=== PATIENT | male | born 1990 | race Hispanic/Latino ===

== ENCOUNTER 2022-01-19 03:08 | Inpatient (IN) | payer OTHER ==
[2022-01-19] VITALS (21 sets, daily range): BP systolic 111–156; BP diastolic 48–93
[~2022-01-19] VITALS: Ht 175.3 cm; Wt 117.3 kg
[2022-01-19 03:48] LABS: BASOPHILS % (AUTO) 0.2 % (0.0-5.0); EOSINOPHILS % (AUTO) 0.1 % (0.0-8.0); HEMATOCRIT 44.6 % (42-54); MEAN CORPUSCULAR HEMOGLOBIN 30.9 pg (27.0-33.0); MEAN CORPUSCULAR HGB CONC 35.9 g/dL (32.0-36.0); MEAN CORPUSCULAR VOLUME 86.1 fL (79-99); MONOCYTES % (AUTO) 5.3 % (3.0-13.0); NEUTROPHILS % (AUTO) 83.9 % (40.0-77.0); PLATELET COUNT (AUTO) 125 K/uL (130-400); RED BLOOD CELL COUNT(AUTO) 5.18 MIL/uL (4.50-6.20); RED CELL DISTRIBUTION WIDTH 12.4 % (11.0-15.5); WHITE BLOOD COUNT (AUTO) 8.8 K/uL (4.8-10.8)
[2022-01-19 03:51] LABS: APPEARANCE,URINE CLEAR (CLEAR); BILIRUBIN,URINE MODERATE (NEGATIVE); COLOR,URINE ORANGE (YELLOW); GLUCOSE, URINE (UA) 100 mg/dL (NEGATIVE); KETONES,URINE 15 mg/dL (NEGATIVE); LEUKOCYTE ESTERASE ,URINE NEGATIVE (NEGATIVE); NITRATE,URINE NEGATIVE (NEGATIVE); OCCULT BLOOD,URINE NEGATIVE (NEGATIVE); PROTEIN,URINE 30 mg/dL (NEGATIVE); UROBILINOGEN,URINE >=8.0 mg/dL (0.2-1.0)
[2022-01-19 03:57] LABS: AMPHET/METH SCREEN,URINE POSITIVE (NEGATIVE); BARBITURATE SCREEN, URINE NEGATIVE (NEGATIVE); BENZODIAZEPINES SCREEN,URINE POSITIVE (NEGATIVE); CANNABINOID SCREEN,URINE POSITIVE (NEGATIVE); COCAINE SCREEN,URINE POSITIVE (NEGATIVE); OPIATE SCREEN,URINE NEGATIVE (NEGATIVE); PHENCYCLIDINE SCREEN,URINE NEGATIVE (NEGATIVE)
[2022-01-19 03:59] LABS: INR 1.59 (0.85-1.15); PROTHROMBIN TIME 16.9 SEC (9.6-11.6)
[2022-01-19 04:00] LABS: PARTIAL THROMBOPLASTIN TIME 27.7 SEC (26.3-35.5)
[2022-01-19 04:07] LABS: POTASSIUM 2.9 mmol/L (3.5-5.1)
[2022-01-19 04:09] LABS: BACTERIA,URINE Rare /HPF (None Seen); RBC,URINE 0-1 /HPF (0-1); SQUAMOUS EPITHELIAL CELL,UR 0-2 /HPF (0-2); WBC,URINE 0-1 /HPF (0-1)
[2022-01-19] MEDS ORDERED: KCL 20 MEQ ERTAB PO STA (04:13)
[2022-01-19] MEDS ORDERED: ACETYLCYSTEINE 10% 100MG/ML 4ML VIAL ONE (04:18)
[2022-01-19 04:19] LABS: MAGNESIUM 1.9 mg/dL (1.80-2.40); TOTAL PROTEIN, SERUM 7.6 g/dL (6.0-8.3)
[2022-01-19] MEDS ORDERED: ACETYLCYSTEINE IV ONE ×6 (04:30)
[2022-01-19] MEDS ORDERED: WATER IV ONE ×6 (04:30)
[2022-01-19] MEDS ORDERED: DEXTROSE 5% IV ONE ×6 (04:30)
[2022-01-19] MEDS ORDERED: ONDANSETRON 4MG INJ ONE (07:19)
[2022-01-19] MEDS ORDERED: ONDANSETRON 4MG INJ IVP ONE ×2 (07:30→08:00)
[2022-01-19] MEDS ORDERED: ONDANSETRON 4MG INJ IVP PRN (08:00)
[2022-01-19 08:32] LABS: ABG BASE EXCESS -2.2 mmol/L (-2.0-3.0); ABG HCO3 22.5 mmol/L (21.0-28.0); ABG OXYGEN SATURATION 94.5 % (95.0-99.0); ABG PCO2 39 mmHg (35-48)
[2022-01-19 08:55] LABS: ALBUMIN 3.5 g/dL (3.5-5.0)
[2022-01-19 09:13] LABS: POTASSIUM 2.8 mmol/L (3.5-5.1)
[2022-01-19] MEDS ORDERED: POTASSIUM CHLORIDE 20MEQ/100ML 100 ML IV PRN (09:30)
[2022-01-19] MEDS: KCL 20 MEQ ERTAB PO PRN ×6 (09:37→18:18)
[2022-01-19 09:52] LABS: ALCOHOL, BLOOD < 3 mg/dL (0-10); AMMONIA 40 umol/L (11-32); PHOSPHORUS 2.4 mg/dL (2.5-4.9)
[2022-01-19] MEDS ORDERED: CHARCOAL/SORBITOL 50 GM/240 ML SUSP PO SCH (10:30)
[2022-01-19 12:16] LABS: INR 1.81 (0.85-1.15); PROTHROMBIN TIME 19.1 SEC (9.6-11.6)
[2022-01-19 12:29] LABS: ALBUMIN 3.7 g/dL (3.5-5.0); TOTAL PROTEIN, SERUM 7.6 g/dL (6.0-8.3)
[2022-01-19 15:30] LABS: INR 1.72 (0.85-1.15); PROTHROMBIN TIME 18.2 SEC (9.6-11.6)
[2022-01-19 15:36] LABS: ALBUMIN 3.7 g/dL (3.5-5.0); BILIRUBIN,DIRECT 1.3 mg/dL (0.0-0.3); TOTAL PROTEIN, SERUM 7.4 g/dL (6.0-8.3)
[2022-01-19 20:15] LABS: HEPATITIS A IGM ANTIBODY Non-Reactive (Nonreactive); HEPATITIS B CORE IGM ANTIBODY Non-Reactive (Negative); HEPATITIS B SURFACE ANTIGEN Non-Reactive (Nonreactive); HEPATITIS C ANTIBODY Non-Reactive (Nonreactive)
[2022-01-19] MEDS: FAMOTIDINE 20MG TAB PO SCH (20:42)
[2022-01-19 21:20] LABS: INR 1.64 (0.85-1.15); PROTHROMBIN TIME 17.4 SEC (9.6-11.6)
[2022-01-19 21:28] LABS: ALBUMIN 3.3 g/dL (3.5-5.0); BILIRUBIN,DIRECT 0.9 mg/dL (0.0-0.3)
[2022-01-20] VITALS (31 sets, daily range): BP systolic 87–139; BP diastolic 41–102
[2022-01-20] MEDS: POTASSIUM CHLORIDE 10% ELIXIR 20 MEQ/15 ML UDCUP PO PRN ×4 (01:33→09:56)
[2022-01-20 02:17] LABS: INR 1.55 (0.85-1.15); PROTHROMBIN TIME 16.5 SEC (9.6-11.6)
[2022-01-20 02:24] LABS: BASOPHILS % (AUTO) 0.3 % (0.0-5.0); EOSINOPHILS % (AUTO) 0.1 % (0.0-8.0); HEMATOCRIT 43.4 % (42-54); LYMPHOCYTES % (AUTO) 12.1 % (21.0-51.0); MEAN CORPUSCULAR HEMOGLOBIN 30.8 pg (27.0-33.0); MEAN CORPUSCULAR HGB CONC 35.9 g/dL (32.0-36.0); MEAN CORPUSCULAR VOLUME 85.8 fL (79-99); MONOCYTES % (AUTO) 3.5 % (3.0-13.0); NEUTROPHILS % (AUTO) 83.5 % (40.0-77.0); PLATELET COUNT (AUTO) 90 K/uL (130-400); RED BLOOD CELL COUNT(AUTO) 5.06 MIL/uL (4.50-6.20); RED CELL DISTRIBUTION WIDTH 12.6 % (11.0-15.5); WHITE BLOOD COUNT (AUTO) 8.7 K/uL (4.8-10.8)
[2022-01-20 02:25] LABS: ALBUMIN 3.3 g/dL (3.5-5.0)
[2022-01-20 05:37] LABS: ALBUMIN 3.2 g/dL (3.5-5.0); CREATININE 1.2 mg/dL (0.5-1.5); POTASSIUM 3.6 mmol/L (3.5-5.1); TOTAL PROTEIN, SERUM 6.8 g/dL (6.0-8.3)
[2022-01-20 05:52] LABS: INR 1.54 (0.85-1.15); PROTHROMBIN TIME 16.4 SEC (9.6-11.6)
[2022-01-20] MEDS: ACETYLCYSTEINE IV SCH ×2 (07:09)
[2022-01-20] MEDS: DEXTROSE 5% IV SCH ×2 (07:09)
[2022-01-20] MEDS: WATER IV SCH ×2 (07:09)
[2022-01-20 13:12] LABS: INR 1.43 (0.85-1.15); PROTHROMBIN TIME 15.3 SEC (9.6-11.6)
[2022-01-20 13:32] LABS: ALBUMIN 3.1 g/dL (3.5-5.0); TOTAL PROTEIN, SERUM 6.7 g/dL (6.0-8.3)
[2022-01-20] MEDS: 0.9%NACL 1000ML 1,000 ML IV SCH (15:24)
[2022-01-20 17:27] LABS: INR 1.35 (0.85-1.15); PROTHROMBIN TIME 14.5 SEC (9.6-11.6)
[2022-01-20 17:37] LABS: ALBUMIN 3.1 g/dL (3.5-5.0); BILIRUBIN,DIRECT 0.9 mg/dL (0.0-0.3); TOTAL PROTEIN, SERUM 6.8 g/dL (6.0-8.3)
[2022-01-20] MEDS: FAMOTIDINE 20MG TAB PO SCH (20:39)
[2022-01-20 20:59] LABS: INR 1.36 (0.85-1.15); PROTHROMBIN TIME 14.6 SEC (9.6-11.6)
[2022-01-20 21:12] LABS: ALBUMIN 2.9 g/dL (3.5-5.0); BILIRUBIN,DIRECT 1.1 mg/dL (0.0-0.3); TOTAL PROTEIN, SERUM 6.5 g/dL (6.0-8.3)
[2022-01-21] VITALS (47 sets, daily range): BP systolic 87–145; BP diastolic 33–83
[2022-01-21] MEDS ORDERED: ACETYLCYSTEINE 20% 200MG/ML 4ML VIAL ONE (00:33)
[2022-01-21] MEDS ORDERED: DEXTROSE 5%-WATER 1,000 ML IV ONE (00:34)
[2022-01-21] MEDS: ACETYLCYSTEINE IV SCH ×4 (00:35→08:04)
[2022-01-21] MEDS: DEXTROSE 5% IV SCH ×4 (00:35→08:04)
[2022-01-21] MEDS: WATER IV SCH ×4 (00:35→08:04)
[2022-01-21] MEDS: 0.9%NACL 1000ML 1,000 ML IV SCH ×2 (03:50→17:05)
[2022-01-21 07:14] LABS: BASOPHILS % (AUTO) 0.4 % (0.0-5.0); EOSINOPHILS % (AUTO) 8.8 % (0.0-8.0); HEMATOCRIT 34.2 % (42-54); MEAN CORPUSCULAR HEMOGLOBIN 30.9 pg (27.0-33.0); MEAN CORPUSCULAR HGB CONC 35.4 g/dL (32.0-36.0); MEAN CORPUSCULAR VOLUME 87.5 fL (79-99); MONOCYTES % (AUTO) 6.3 % (3.0-13.0); NEUTROPHILS % (AUTO) 58.3 % (40.0-77.0); PLATELET COUNT (AUTO) 98 K/uL (130-400); RED BLOOD CELL COUNT(AUTO) 3.91 MIL/uL (4.50-6.20); RED CELL DISTRIBUTION WIDTH 12.3 % (11.0-15.5); WHITE BLOOD COUNT (AUTO) 5.7 K/uL (4.8-10.8)
[2022-01-21 08:07] LABS: INR 1.24 (0.85-1.15); PROTHROMBIN TIME 13.4 SEC (9.6-11.6)
[2022-01-21 08:13] LABS: ALBUMIN 2.8 g/dL (3.5-5.0); CREATININE 0.9 mg/dL (0.5-1.5); POTASSIUM 3.1 mmol/L (3.5-5.1); TOTAL PROTEIN, SERUM 6.1 g/dL (6.0-8.3)
[2022-01-21] MEDS: POTASSIUM CHLORIDE 10% ELIXIR 20 MEQ/15 ML UDCUP PO PRN (09:38)
[2022-01-21] MEDS: KCL 20 MEQ ERTAB PO PRN (12:15)
[2022-01-21 13:22] LABS: INR 1.23 (0.85-1.15); PROTHROMBIN TIME 13.2 SEC (9.6-11.6)
[2022-01-21 13:41] LABS: ALBUMIN 2.8 g/dL (3.5-5.0); BILIRUBIN,DIRECT 0.9 mg/dL (0.0-0.3); TOTAL PROTEIN, SERUM 6.3 g/dL (6.0-8.3)
[2022-01-21] MEDS: FAMOTIDINE 20MG TAB PO SCH (20:35)
[2022-01-21 21:11] LABS: INR 1.22 (0.85-1.15); PROTHROMBIN TIME 13.1 SEC (9.6-11.6)
[2022-01-21 21:31] LABS: ALBUMIN 2.7 g/dL (3.5-5.0); BILIRUBIN,DIRECT 0.6 mg/dL (0.0-0.3); TOTAL PROTEIN, SERUM 6.2 g/dL (6.0-8.3)
[2022-01-22] VITALS (32 sets, daily range): BP systolic 90–142; BP diastolic 40–89
[2022-01-22] MEDS: DEXTROSE 5% IV SCH ×2 (00:14)
[2022-01-22] MEDS: ACETYLCYSTEINE IV SCH ×2 (00:14)
[2022-01-22] MEDS: WATER IV SCH ×2 (00:14)
[2022-01-22 03:45] LABS: BASOPHILS % (AUTO) 0.6 % (0.0-5.0); EOSINOPHILS % (AUTO) 8.2 % (0.0-8.0); HEMATOCRIT 34.6 % (42-54); LYMPHOCYTES % (AUTO) 37.4 % (21.0-51.0); MEAN CORPUSCULAR HEMOGLOBIN 30.7 pg (27.0-33.0); MEAN CORPUSCULAR VOLUME 87.8 fL (79-99); MONOCYTES % (AUTO) 7.6 % (3.0-13.0); PLATELET COUNT (AUTO) 127 K/uL (130-400); RED BLOOD CELL COUNT(AUTO) 3.94 MIL/uL (4.50-6.20); RED CELL DISTRIBUTION WIDTH 12.1 % (11.0-15.5); WHITE BLOOD COUNT (AUTO) 5.1 K/uL (4.8-10.8)
[2022-01-22 04:06] LABS: ALBUMIN 2.7 g/dL (3.5-5.0); CREATININE 0.7 mg/dL (0.5-1.5); POTASSIUM 3.5 mmol/L (3.5-5.1); TOTAL PROTEIN, SERUM 6.1 g/dL (6.0-8.3)
[2022-01-22] MEDS: KCL 20 MEQ ERTAB PO PRN ×2 (06:43→09:33)
[2022-01-22] MEDS: 0.9%NACL 1000ML 1,000 ML IV SCH ×2 (06:44→19:14)
[2022-01-22 16:59] LABS: ALBUMIN 2.9 g/dL (3.5-5.0); BILIRUBIN,DIRECT 0.4 mg/dL (0.0-0.3); TOTAL PROTEIN, SERUM 6.5 g/dL (6.0-8.3)
[2022-01-22 17:03] LABS: INR 1.13 (0.85-1.15); PROTHROMBIN TIME 12.2 SEC (9.6-11.6)
[2022-01-22] MEDS: FAMOTIDINE 20MG TAB PO SCH (20:36)
[2022-01-23] VITALS (22 sets, daily range): BP systolic 80–142; BP diastolic 44–87
[2022-01-23 04:07] LABS: BILIRUBIN,DIRECT 0.3 mg/dL (0.0-0.3); TOTAL PROTEIN, SERUM 6.5 g/dL (6.0-8.3)
[2022-01-23 07:10] LABS: HEMATOCRIT 35.1 % (42-54); MEAN CORPUSCULAR HEMOGLOBIN 31.1 pg (27.0-33.0); MEAN CORPUSCULAR VOLUME 88.6 fL (79-99); PLATELET COUNT (AUTO) 154 K/uL (130-400); RED BLOOD CELL COUNT(AUTO) 3.96 MIL/uL (4.50-6.20); RED CELL DISTRIBUTION WIDTH 12.3 % (11.0-15.5); WHITE BLOOD COUNT (AUTO) 5.7 K/uL (4.8-10.8)
[2022-01-23 07:32] LABS: CREATININE 0.8 mg/dL (0.5-1.5); POTASSIUM 3.8 mmol/L (3.5-5.1)
[2022-01-23 08:05] LABS: BAND NEUTROPHILS % (MANUAL) 1 % (0-2); EOSINOPHILS % (MANUAL) 10 % (1-6); LYMPHOCYTES % (MANUAL) 37 % (22-44); MAN.DIFF COMMENT-IMPRESSION MANUAL DIFFERENTIAL; MONOCYTES % (MANUAL) 4 % (2-9); PLATELET MORPHOLOGY COMMENT ADEQUATE; REACTIVE LYMPHOCYTES 2 % (0-0); SEGMENTED NEUTROPHILS % 46 % (40-70)
[2022-01-23] MEDS: KCL 20 MEQ ERTAB PO PRN ×2 (08:05→11:15)
[2022-01-23] MEDS: 0.9%NACL 1000ML 1,000 ML IV SCH ×2 (11:15→20:19)
[2022-01-23] MEDS: FAMOTIDINE 20MG TAB PO SCH (20:19)
[2022-01-24] VITALS (10 sets, daily range): BP systolic 103–153; BP diastolic 37–87
[2022-01-24 04:55] LABS: ALBUMIN 3.2 g/dL (3.5-5.0); BILIRUBIN,DIRECT 0.2 mg/dL (0.0-0.3); TOTAL PROTEIN, SERUM 6.6 g/dL (6.0-8.3)
[2022-01-24] MEDS: 0.9%NACL 1000ML 1,000 ML IV SCH (10:09)
[2022-01-24] MEDS: FAMOTIDINE 20MG TAB PO SCH (20:59)
[2022-01-25 00:35] VITALS: BP 128/78
[2022-01-25 04:16] VITALS: BP 114/66
[2022-01-25 05:01] LABS: ALBUMIN 3.4 g/dL (3.5-5.0); BILIRUBIN,DIRECT 0.2 mg/dL (0.0-0.3); TOTAL PROTEIN, SERUM 6.9 g/dL (6.0-8.3)
[2022-01-25 07:17] VITALS: BP 115/77
[2022-01-25 12:09] VITALS: BP 122/60
[2022-01-25 16:12] VITALS: BP 142/65
[2022-01-25 20:21] VITALS: BP 138/83
[2022-01-25] MEDS: FAMOTIDINE 20MG TAB PO SCH (21:56)
[2022-01-26 00:42] VITALS: BP 128/74
[2022-01-26 04:15] VITALS: BP 108/66
[2022-01-26 07:10] VITALS: BP 147/65
[2022-01-26 07:15] VITALS: BP 103/33
[2022-01-26] MEDS ORDERED: FAMO20TA8 PO (12:17)
== END 2022-01-26 13:40 | disposition home or self-care (01) | DRG 917 ==
LOC: EDH 03:08 → EDHIP 03:09 → 2BH 10:00 → 3DH 01-25 08:25
PROVIDERS: ADMIT Internal Medicine; ATTEND Internal Medicine
DX: T39.1X2A Poisoning by 4-Aminophenol derivatives, intentional self-harm, initial encounter (principal); K72.00 Acute and subacute hepatic failure without coma; D68.9 Coagulation defect, unspecified; Z20.822 Contact with and (suspected) exposure to COVID-19; E87.6 Hypokalemia; F31.9 Bipolar disorder, unspecified; F41.9 Anxiety disorder, unspecified; E11.9 Type 2 diabetes mellitus without complications; D69.6 Thrombocytopenia, unspecified; F12.10 Cannabis abuse, uncomplicated; F14.10 Cocaine abuse, uncomplicated; G89.29 Other chronic pain; M54.30 Sciatica, unspecified side; Z91.19 Patient's noncompliance with other medical treatment and regimen; Y92.89 Other specified places as the place of occurrence of the external cause
CPT/HCPCS: 36415; 36600; 70450; 71045; 74176; 76705; 80048; 80053; 80074; 80076; 80305; 81001; 82140; 82803; 82948; 83605; 83615; 83735; 84100; 84132; 84484; 85025; 85610; 85730; 87635; 93005; G0378; J0132; J2405; J7030; J7060; J7070; J7608

== ENCOUNTER 2022-08-29 04:05 | Emergency (ER) | payer MEDICAID, OTHER ==
[~2022-08-29] VITALS: Ht 177.8 cm; Wt 124.7 kg
[~2022-08-29 04:05] MED LIST: FAMO20TA8 PO
[2022-08-29] MEDS ORDERED: FAMOTIDINE 20MG VIAL IV ONE ×2 (04:21→04:30)
[2022-08-29] MEDS ORDERED: FAMOTIDINE 20MG TAB PO ONE (04:30)
[2022-08-29 04:45] LABS: BASOPHILS % (AUTO) 0.7 % (0.0-5.0); EOSINOPHILS % (AUTO) 0.5 % (0.0-8.0); HEMATOCRIT 46.6 % (42-54); LYMPHOCYTES % (AUTO) 23.7 % (21.0-51.0); MEAN CORPUSCULAR HEMOGLOBIN 30.8 pg (27.0-33.0); MEAN CORPUSCULAR VOLUME 87.9 fL (79-99); MONOCYTES % (AUTO) 8.3 % (3.0-13.0); NEUTROPHILS % (AUTO) 66.3 % (40.0-77.0); PLATELET COUNT (AUTO) 203 K/uL (130-400); RED CELL DISTRIBUTION WIDTH 12.5 % (11.0-15.5); WHITE BLOOD COUNT (AUTO) 8.7 K/uL (4.8-10.8)
[2022-08-29 05:00] LABS: ALANINE AMINOTRANSFERASE 53 U/L (12-78); ALBUMIN 4.5 g/dL (3.5-5.0); ALCOHOL, BLOOD < 3 mg/dL (0-10); ASPARTATE AMINOTRANSFERASE 37 U/L (10-37); CARBON DIOXIDE 26 mmol/L (21-32); CHLORIDE 99 mmol/L (101-111); CREATININE 1.2 mg/dL (0.5-1.5); GLOMERULAR FILTR. RATE CALC 76 mL/min (>60); GLUCOSE,RANDOM 147 mg/dL (70-105); LIPASE < 50 U/L (114-286); SODIUM SERUM 137 mmol/L (136-145); TOTAL PROTEIN, SERUM 8.1 g/dL (6.0-8.3); UREA NITROGEN, BLOOD 10 mg/dL (7-18)
[2022-08-29] MEDS ORDERED: 0.9%NACL 1000ML 1,000 ML IV ONE (05:00)
[2022-08-29 05:02] LABS: POTASSIUM 2.5 mmol/L (3.5-5.1)
[2022-08-29 05:07] LABS: INR 1.08 (0.85-1.15); PROTHROMBIN TIME 11.7 SEC (9.6-11.6)
[2022-08-29] MEDS ORDERED: POTASSIUM BICARB/CIT AC 25 MEQ TABLET.EFF PO ONE (05:30)
[2022-08-29] MEDS ORDERED: POTA99CA PO (05:56)
[2022-08-29 06:00] VITALS: BP 104/70
== END 2022-08-29 06:01 | disposition home or self-care (01) ==
LOC: EDH 04:05
DX: E87.6 Hypokalemia (principal); K56.7 Ileus, unspecified; E11.9 Type 2 diabetes mellitus without complications; F31.9 Bipolar disorder, unspecified; F41.9 Anxiety disorder, unspecified
CPT/HCPCS: 99284; 96374; 84484; 80053; 83690; 85025; 85610; 85730; 82948; 36415; 93005; J3490

== ENCOUNTER 2023-12-18 07:08 | Emergency (ER) | payer BC, MEDICAID ==
[~2023-12-18] VITALS: Ht 180.3 cm; Wt 122.5 kg
[~2023-12-18 07:08] MED LIST changes: +POTA99CA PO
[2023-12-18] MEDS ORDERED: BUSP7.5T7 PO (07:16)
[2023-12-18] MEDS ORDERED: ESCI-8 PO (07:16)
[2023-12-18 07:34] LABS: BASOPHILS # (AUTO) 0.02 K/uL (0.00-0.20); BASOPHILS % (AUTO) 0.2 % (0.0-5.0); HEMATOCRIT 43.1 % (42-54); IMMATURE GRANULOCYTE ABSOLUTE 0.05 K/uL (0-1); LYMPHOCYTES # (AUTO) 1.5 K/uL (1.0-4.8); LYMPHOCYTES % (AUTO) 17.5 % (21.0-51.0); MEAN CORPUSCULAR HEMOGLOBIN 31.1 pg (27.0-33.0); MEAN CORPUSCULAR HGB CONC 35.7 g/dL (32.0-36.0); MEAN CORPUSCULAR VOLUME 87.1 fL (79-99); MONOCYTES # (AUTO) 0.7 K/uL (0.1-1.0); MONOCYTES % (AUTO) 7.9 % (3.0-13.0); NEUTROPHILS # (AUTO) 6.1 K/uL (1.8-7.7); NEUTROPHILS % (AUTO) 73.8 % (40.0-77.0); PLATELET COUNT (AUTO) 188 K/uL (130-400); RED BLOOD CELL COUNT(AUTO) 4.95 MIL/uL (4.50-6.20); RED CELL DISTRIBUTION WIDTH 12.5 % (11.0-15.5); WHITE BLOOD COUNT (AUTO) 8.3 K/uL (4.8-10.8)
[2023-12-18 07:49] LABS: INR 0.96 (0.85-1.15); PROTHROMBIN TIME 11.4 SEC (9.6-11.6)
[2023-12-18 07:54] LABS: ALBUMIN 4.1 g/dL (3.5-5.0); CARBON DIOXIDE 28 mmol/L (21-32); CHLORIDE 102 mmol/L (101-111); GLOMERULAR FILTR. RATE CALC 103 mL/min (>90); GLUCOSE,RANDOM 163 mg/dL (70-105); SODIUM SERUM 140 mmol/L (136-145); UREA NITROGEN, BLOOD 6 mg/dL (7-18)
[2023-12-18 08:06] LABS: ALANINE AMINOTRANSFERASE 51 U/L (12-78); ALCOHOL, BLOOD < 3 mg/dL (0-10); ASPARTATE AMINOTRANSFERASE 29 U/L (10-37); BILIRUBIN,TOTAL 0.7 mg/dL (0.2-1.0); TOTAL PROTEIN, SERUM 7.6 g/dL (6.0-8.3)
[2023-12-18 08:13] LABS: CREATINE KINASE, TOTAL 546 U/L (21-232); POTASSIUM 2.8 mmol/L (3.5-5.1)
[2023-12-18 08:14] LABS: ACETAMINOPHEN < 1 mcg/mL (10-29); SALICYLATE < 2.8 mg/dL (2.8-20.0)
[2023-12-18] MEDS: POTASSIUM BICARB/CIT AC 25 MEQ TABLET.EFF PO ONE (08:20)
[2023-12-18] MEDS: POTASSIUM CHLORIDE 10MEQ/100ML 100 ML IV ONE (08:28)
[2023-12-18 08:57] LABS: APPEARANCE,URINE CLEAR (CLEAR); BILIRUBIN,URINE NEGATIVE (NEGATIVE); COLOR,URINE LIGHT-YELLOW (YELLOW); GLUCOSE, URINE (UA) NEGATIVE (NEGATIVE); KETONES,URINE NEGATIVE (NEGATIVE); LEUKOCYTE ESTERASE ,URINE NEGATIVE Leu/uL (NEGATIVE); NITRATE,URINE NEGATIVE (NEGATIVE); OCCULT BLOOD,URINE NEGATIVE (NEGATIVE); PROTEIN,URINE 20 mg/dL (NEGATIVE); UROBILINOGEN,URINE 0.2 mg/dL (0.2-1.0)
[2023-12-18 08:59] LABS: ADD UA MICROSCOPIC YES
[2023-12-18 10:01] LABS: AMPHET/METH SCREEN,URINE NEGATIVE (NEGATIVE); BARBITURATE SCREEN, URINE NEGATIVE (NEGATIVE); BENZODIAZEPINES SCREEN,URINE POSITIVE (NEGATIVE); CANNABINOID SCREEN,URINE NEGATIVE (NEGATIVE); COCAINE SCREEN,URINE POSITIVE (NEGATIVE); OPIATE SCREEN,URINE NEGATIVE (NEGATIVE); PHENCYCLIDINE SCREEN,URINE NEGATIVE (NEGATIVE)
[2023-12-19 11:10] VITALS: BP 132/70; PULSE 68; RESP 16; O2SAT 98
== END 2023-12-19 14:35 ==
LOC: EDH 07:08
DX: T39.1X1A Poisoning by 4-Aminophenol derivatives, accidental (unintentional), initial encounter (principal); R45.851 Suicidal ideations; F41.9 Anxiety disorder, unspecified; Z79.899 Other long term (current) drug therapy; Y92.89 Other specified places as the place of occurrence of the external cause
CPT/HCPCS: 99285; 96360; 82550; 84132; 80053; 80305; 85025; 85610; 81001; 36415; 93005; G0481; J3480